=== PATIENT | female | born 1970 | race Caucasian/White ===

== ENCOUNTER → 2018-05-07 | Outpatient (CLI) | payer BC ==
--- NOTE | 2018-05-07 16:27 | Diagnostic Imaging Report ---
INDICATION: Routine screening. COMPARISON: Right mammogram from 03/30/2013 and bilateral mammograms from 08/12/2012. EXAMINATION: 2D and 3D bilateral screening mammography was performed with CAD. The current study was also evaluated with a Computer Aided Detection (CAD) system. FINDINGS: Both breasts are heterogeneously dense, limiting the sensitivity of mammography. There are scattered benign-appearing calcifications throughout both breasts. There is a circumscribed nodule in the upper and slightly inner right breast at mid depth. This has fairly benign features but ultrasound of this area is recommended. Left breast is unremarkable. No spiculated mass is seen. Axillae are unremarkable. IMPRESSION: 1. Circumscribed nodule in the upper and slightly inner right breast at mid to posterior depth. Further evaluation with ultrasound is recommended. 2. Stable benign-appearing bilateral breast calcifications. ACR BI-RADS Category 0: Incomplete. (Needs additional imaging evaluation). Result letter will be mailed to the patient. Note: At least 10% of breast cancer is not imaged by mammography. Dictated on workstation # [id number]
--- NOTE | 2018-05-07 18:03 | Diagnostic Imaging Report ---
INDICATION: Right breast density. This study was performed for further evaluation. COMPARISON: Correlation is made with recent mammogram from earlier the same day. EXAMINATION: Right breast ultrasound. FINDINGS: At the 12 o'clock location of the right breast there is a slightly lobulated cyst, measuring 7 mm x 6 mm x 4 mm. This likely accounts for the mammographic density. No acoustic shadowing is seen. No internal vascularity is seen. This is located approximately 7 cm from the nipple. There is a second tiny hypoechoic nodule at the 11 o'clock location, 2 cm from the nipple, measuring approximately 4 mm in size. No other abnormality is seen. IMPRESSION: Slightly lobulated hypoechoic mass at the 12 o'clock location of the right breast, 7 cm from the nipple, without posterior acoustic shadowing. This may represent a cyst. Even so, followup right mammogram and right breast ultrasound in six months is recommended to confirm stability. ACR BI-RADS Category 3: Probably benign findings. Result letter will be mailed to the patient. Note: At least 10% of breast cancer is not imaged by mammography. Dictated on workstation # [id number]
== END ==
LOC: RAD 10:53
PROVIDERS: ATTEND Family Medicine
DX: Z12.31 Encounter for screening mammogram for malignant neoplasm of breast (principal); N63.12 Unspecified lump in the right breast, upper inner quadrant
CPT/HCPCS: 77067